=== PATIENT | female | born 1970 | race African-American/Black ===

== ENCOUNTER 2016-08-24 17:00 | Inpatient (IN) | payer MEDICARE, OTHER ==
--- NOTE | ~2016-08-24 | CO ---
Unit #: [id number] #: [id number] Patient: ANNIKA ADAMES [id number] [place] [address] [id number] MR#: [id number] NAME: ANNIKA ADAMES ROOM: P256 Age: 46 Sex: F Admission Date: 08/24/2016 : 1970 Attending Physician: Yuliana Casey M.D. Primary Care Physician: Lefty Magaña M.D. Consultation Date: 08/25/2016 CONSULTATION REPORT SUBJECTIVE Annika is a 46-year-old with history of seizures. She is noncompliant with medication. At the time of admission, she reported that her last seizure was 3 weeks ago. She was admitted with some scattered bruising about her face. She has no complaints in the areas where she is bruised. She does report occasional headaches. She denies visual disturbances and nausea and vomiting. The patient was seen for her admission H and P on 08/25/2016. Please see H and P dated 08/25/2016. Dictated by... Mariah Villa P.A.-C. for Soren Valdes/cachorro TD: 08/28/2016 18:25 JOB #: [id number] CONSULTATION REPORT Page 1 of 1 X Mariah Villa CONSULTATION REPORT
--- NOTE | ~2016-08-24 | PN ---
Unit #: [id number] #: [id number] Patient: ZION ADAMES [id number] [facility] [address] [place] [address] [id number] MR#: [id number] NAME: ZION ADAMES ROOM: P256 Age: 46 Sex: F Admission Date: 08/24/2016 : 1970 Attending Physician: Yuliana Casey M.D. Admitting Physician: Yuliana Casey M.D. Primary Care Physician: Soren Zhu PROGRESS NOTES DATE August 29, 2016 DISCUSSION Ms. Adames is a 46-year-old female, who was seen today and chart was reviewed and the case was discussed with the staff. The patient has been doing fairly well and has been showing improvement in her depression and anxiety, meanwhile, she has been taking the medications and tolerating them fairly well. MENTAL STATUS EXAMINATION Middle-aged female, who was casually dressed with fair personal hygiene and appears to be in no acute distress or discomfort. She was awake and alert with impaired attention and concentration. Her mood was anxious with a congruent affect. The patient denies any suicidal or homicidal ideations. Her insight and judgment remain slightly impaired. TREATMENT PLAN 1. We will continue her on her current medications and treatment protocol, and will monitor her response to the medications, and make further adjustments as needed. 2. We will continue to followup. Dictated by... Soren Wilkes/chris TD: 08/30/2016 13:24 JOB #: [id number] Unit #: [id number] #: [id number] Patient: ZION ADAMES PROGRESS NOTES Page 1 of 1 X Yuliana Casey MD PROGRESS NOTE
--- NOTE | ~2016-08-24 | PN ---
Unit #: [id number] #: [id number] Patient: ZION ADAMES [id number] [facility] [address] [place] [address] [id number] MR#: [id number] NAME: ZION ADAMES ROOM: P256 Age: 46 Sex: F Admission Date: 08/24/2016 : 1970 Attending Physician: Yuliana Casey M.D. Admitting Physician: Yuliana Casey M.D. Primary Care Physician: Soren Zhu PROGRESS NOTES DATE August 27, 2016 DISCUSSION Ms. Adames is a 46-year-old female, who was seen today and chart was reviewed and the case was discussed with the staff. The patient has been anxious, withdrawn, and rather seclusive to herself. Meanwhile, she has been cooperative with the treatment recommendations and she has been taking the medications and tolerating them fairly well with no reported side effects. MENTAL STATUS EXAMINATION Middle-aged female, who was casually dressed with fair personal hygiene and appears to be in no acute distress or discomfort. She was awake and alert with impaired attention and concentration. Her mood was anxious with a congruent affect. The patient denies any suicidal or homicidal ideations. Her insight and judgment remain slightly impaired. TREATMENT PLAN 1. We will continue her on her current medications and treatment protocol, and will monitor her response to the medications, and make further adjustments as needed. 2. We will continue to followup. Dictated by... Soren Wilkes/chris TD: 08/27/2016 12:18 JOB #: [id number] Unit #: [id number] #: [id number] Patient: ZION ADAMES PROGRESS NOTES Page 1 of 1 X Yuliana Casey MD X PROGRESS NOTE
--- NOTE | ~2016-08-24 | A ---
[facility] Nutrition Therapy DATE: 08/27/16 Patient: ZION ROSANGELA Physician: AFAIRF Address: [address] [facility] [address] Room/Bed: [address], Zip: [place] [address] Admit Date: 08/24/16 Date of : [birth year] Height: 5 7 Weight: 315 [phone] NUTRITIONAL ASSESSMENT: REASON: CONSULT "PT REQUEST" PATIENT ADMITTED FOR DEPRESSION AND SI PMH: OBESITY, SEIZURE D/O, HTN, HLD, GERD Anthropometrics: HT: 67", WT: 316#, BMI: 49.5 Labs: 08/25/16- ALL NUTRITION LABS WNL, HGB: 11.9 Meds: MVI, ZOLOFT, INVEGA, KEPPRA, ZOFRAN Assessment: PATIENT REQUESTED TO SEE THE DIETITIAN. SHE STATED WHEN SHE WAS AT THE HOSPTIAL THE MD TOLD HER SHE HAD HIGH PROTEIN LEVELS AND NEEDED TO CONSUME LESS PROTEIN. LABS FROM 08/25/16 SHOW PATIENT'S RENAL FUNCTION, ALBUMIN, AND TOTAL PROTEIN ARE ALL WITHIN A NORMAL RANGE, AND HER HEMOGLOBIN WAS LOW AT 11.9. THERE IS NO NUTRITIONAL NEED FOR PATIENT TO BE ON A LOW PROTEIN DIET, AND PATIENT'S CURRENT HBG LEVELS INDICATE SHE MAY HAVE SLIGHT ANEMIA. THERE ARE NO SKIN OR GI ISSUES NOTED ATT. PATIENT IS ON A REGULAR DIET Dx: NO NUTRITION DX Intervention: REGULAR DIET, MEDS PER MD, PSYCH Monitoring, Evaluation and Goals: 1. ADEQUATE PO INTAKES >50% OF MEALS 2. PREVENT, CORRECT MICRO/MACRO NUTRIENT DEFICIENCIES MONITOR: WEIGHTS, LABS, PO/FLUID INTAKES Recommendations: 1. CONTINUE REGULAR DIET TOLERATED. THERE IS NO NUTRITION INDICATION FOR PATIENT TO BE ON A LOW PROTEIN DIET 2. ENCOURAGE ADEQUATE PO AND FLUID INTAKES RD TO F/U PER PROTOCOL AND PRN R/T PATIENT NOT AT NUTRITIONAL RISK ATT Respectfully, [facility] Nutrition Therapy DATE: 08/27/16 Patient: ZION ROSANGELA Physician: AFAIRF Address: [address] [facility] [address] Room/Bed: [address], Zip: [place] [address] Admit Date: 08/24/16 Date of : [birth year] Height: 5 7 Weight: [phone], LD [facility] cc: client file
--- NOTE | ~2016-08-24 | PN ---
Unit #: [id number] #: [id number] Patient: ZION ADAMES [id number] [facility] [address] [place] [address] [id number] MR#: [id number] NAME: ZION ADAMES ROOM: P256 Age: 46 Sex: F Admission Date: 08/24/2016 : 1970 Attending Physician: Yuliana Casey M.D. Admitting Physician: Yuliana Casey M.D. Primary Care Physician: Soren Zhu PROGRESS NOTES DATE OF SERVICE: 08/26/2016 SUBJECTIVE Ms. Cuellar is a 46-year-old female, who was seen today and chart was reviewed and case was discussed with the staff. She has been anxious, withdrawn, depressed, and seclusive to herself. Meanwhile, she has been cooperative with treatment recommendations and has been taking medications and tolerating them fairly well with no reported side effects. MENTAL STATUS EXAMINATION Middle-aged female who was casually dressed with fair personal hygiene, appears to be in no acute distress or discomfort. She was awake and alert with impaired attention and concentration. Her mood was anxious with a congruent affect. Her speech was slow and restricted in content. She denies any suicidal or homicidal ideations. Her insight and judgment remain slightly impaired. TREATMENT PLAN 1. We will continue on her current medications and treatment protocol. We will monitor her response to the medications and make further adjustments as needed. 2. We will continue to follow up. Dictated by... Soren Wilkes/cachorro TD: 08/27/2016 00:42 JOB #: [id number] Unit #: [id number] #: [id number] Patient: ZION ADAMES PROGRESS NOTES Page 1 of 1 X Yuliana Casey MD PROGRESS NOTE
--- NOTE | ~2016-08-24 | HP ---
Unit #: [id number] #: [id number] Patient: ANNIKA ADAMES [id number] [place] [address] [id number] MR#: [id number] NAME: ANNIKA ADAMES ROOM: P258 Age: 46 Sex: F Admission Date: 08/24/2016 : 1970 Attending Physician: Yuliana Casey M.D. Admitting Physician: Yuliana Casey M.D. Primary Care Physician: Lefty Magaña M.D. HISTORY AND PHYSICAL HISTORY OF PRESENT ILLNESS Annika is a 46 year old admitted to [address] [place] [address] with depression and verbalizing wanting to hurt herself. PAST MEDICAL HISTORY 1. Obesity. 2. Seizure disorder. Patient reports last seizure 3 weeks ago. She further reports that she is noncompliant with her medications. 3. High blood pressure. 4. Hyperlipidemia. 5. GERD. PAST SURGICAL HISTORY 1. Cholecystectomy. 2. D and C. 3. Tubal ligation. ALLERGIES No known drug allergies. SOCIAL HISTORY She denies cigarettes, alcohol and illicit drug use. FAMILY HISTORY Medically noncontributory. REVIEW OF SYSTEMS CONSTITUTIONAL: No fever or chills. HEENT: Denies any sore throat, ear pain or runny nose. CARDIOVASCULAR: Denies chest pain, irregular heart rhythm or palpitations. CHEST: Denies shortness of breath or cough. No hemoptysis. GASTROINTESTINAL: Denies nausea, vomiting, diarrhea or chronic constipation. ENDOCRINE: Denies history of increased thirst or urination. No recent significant weight loss or gain. GENITOURINARY: Denies dysuria, frequency, or hematuria. SKIN: Denies any rashes. HEMATOLOGIC: Denies history of increased bleeding or bruising. MUSCULOSKELETAL: Denies any hot, swollen joints. No generalized muscle pain. NEUROLOGIC: Denies problems with vision or speech. No frequent, severe headaches. No numbness, tingling or weakness in any extremities. Denies loss of bladder or bowel control. Unit #: [id number] #: [id number] Patient: ANNIKA ADAMES CURRENT MEDICATIONS 1. Claritin 10 mg daily. 2. Multivitamin 1 daily. 3. Tenormin 25 mg daily. 4. Aspirin 81 mg daily. 5. Zoloft 100 mg daily. 6. Lipitor 20 mg daily. 7. Invega 9 mg q.h.s. 8. Keppra 1000 mg b.i.d. 9. Zofran 4 mg t.i.d. 10. Naproxen 500 mg q. 12 hours p.r.n. 11. Lamictal 400 mg b.i.d. 12. Milk of Magnesia p.r.n. 13. Maalox p.r.n. 14. Tylenol p.r.n. PHYSICAL EXAMINATION GENERAL: Alert, obese, in no apparent distress. VITAL SIGNS: Blood pressure 126/86, heart rate 80, respirations 16, temperature 98.6. WEIGHT: 316. HEIGHT: 5 feet 7 inches. SKIN: Warm and dry without rash or lesion. HEENT: Normocephalic. TMs not viewed. Oral and nasal passages clear. Conjunctivae clear. PERRLA. EOMs intact. NECK: Supple without lymphadenopathy or thyromegaly. HEART: Regular rate and rhythm without murmur. LUNGS: Clear. ABDOMEN: Soft, nontender. : Not done. EXTREMITIES: No evidence of cyanosis, clubbing or edema. Moves all without focal deficit. NEUROLOGICAL: Grossly within normal limits. Cranial Nerves: II: Visual painting are intact. III, IV AND : Extraocular movements are intact. Pupils are equal, round and reactive to light. V: Facial sensation is grossly normal. VII: Facial movements and expression are normal. VIII: Auditory acuity grossly intact. IX, X: Uvula is midline. Phonation is normal. XI: Patient shrugs shoulders and turns head normally. XII: Tongue protrudes in the midline. Sensory and Motor Function: Sensory and motor sensation is grossly normal. Motor: moves all extremities well. Coordination: Gait is normal. Deep Tendon Reflexes: Intact. IMPRESSION Psychiatric admission. RECOMMENDATIONS PSYCHIATRIC: Per psychiatrist. MEDICAL: See no contraindication to participate in facility's activities. MEDICAL PROGNOSIS Good. MEDICAL CONDITION Stable. Unit #: [id number] #: [id number] Patient: ANNIKA ADAMES Dictated by... Mariah Villa P.A.-C. for Soren Valdes/chio TD: 08/25/2016 17:41 JOB #: [id number] HISTORY AND PHYSICAL Page 1 of 1 X Mariah Villa HISTORY AND PHYSICAL
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
--- NOTE | ~2016-08-24 | PN ---
Unit #: [id number] #: [id number] Patient: ZION ADAMES [id number] [facility] [address] [place] [address] [id number] MR#: [id number] NAME: ZION ADAMES ROOM: P256 Age: 46 Sex: F Admission Date: 08/24/2016 : 1970 Attending Physician: Yuliana Casey M.D. Admitting Physician: Yuliana Casey M.D. Primary Care Physician: Soren Zhu PROGRESS NOTES DATE 08/28/2016 DISCUSSION Ms. Cuellar is a 46-year-old female who was seen today and chart was reviewed and case was discussed with the staff. She has been anxious, withdrawn, depressed and rather seclusive to herself. Meanwhile, she has been cooperative with treatment recommendations and has been taking medications and tolerating them fairly well. MENTAL STATUS EXAMINATION Middle-aged female who was casually dressed with fair personal hygiene and appears to be in no acute distress or discomfort. She was awake and alert . Her mood was anxious with congruent affect. She denies any suicidal or homicidal ideation. Her insight and judgement remains slightly impaired. TREATMENT PLAN 1. Will continue current medications and monitor her response and make further adjustments as needed. 2. Will continue to follow up. Dictated by... Yuliana Casey M.D. IAA/chio TD: 08/28/2016 18:04 JOB #: [id number] Unit #: [id number] #: [id number] Patient: ZION ADAMES PROGRESS NOTES Page 1 of 1 X Yuliana Casey MD X PROGRESS NOTE
[2016-08-25 09:43] LABS: URINE APPEARANCE CLEAR; URINE BILIRUBIN NEG (NEG); URINE BLOOD NEG (NEG); URINE COLOR YELLOW; URINE GLUCOSE NEG (NEG); URINE KETONE NEG (NEG); URINE LEUKOCYTE ESTERASE NEG (NEG); URINE NITRATE NEG (NEG); URINE PROTEIN NEG (NEG); URINE SPECIFIC GRAVITY 1.018 (1.003-1.035); URINE UROBILINOGEN 0.2 MG/DL (NEG)
[2016-08-25 09:46] LABS: BASOPHIL% 0.8 % (0-2.5); DIFF IND NO; EOSINOPHIL# 0.1 X10e3 (0-0.7); EOSINOPHIL% 1.6 % (0.0-7.0); HEMATOCRIT 36.4 % (35.0-45.0); HEMOGLOBIN 11.9 gm/dL (12.0-16.0); LYMPHOCYTE# 1.6 X10e3 (1.0-3.5); LYMPHOCYTE% 27.3 % (17.0-45.0); MEAN CORPUSCULAR HEMOGLOBIN 28.5 PG (28-34); MEAN CORPUSCULAR HGB CONC 32.8 g/dL (30-36); MONOCYTE# 0.5 X10e3 (0-1.0); NEUTROPHIL# 3.6 X10e3 (1.5-7.1); NEUTROPHIL% 62.3 % (40-75); PLATELET COUNT 195 X10e3 (140-420); RED BLOOD COUNT 4.18 X10e (3.90-5.30); RED CELL DISTRIBUTION WIDTH 13.3 % (11.0-15.5); WHITE BLOOD COUNT 5.8 X10e3 (4.0-10.5)
[2016-08-25 10:09] LABS: AMPHETAMINE NEG (NEG); BARBITURATES NEG (NEG); BENZODIAZEPINES NEG (NEG); COCAINE NEG (NEG); MARIJUANA NEG (NEG); OPIATES NEG (NEG); TRICYCLIC ANTIDEPRESSANTS NEG (NEG); U METHADONE NEG (NEG)
[2016-08-25 10:09] LABS: ALBUMIN SERUM 3.5 g/dL (3.5-5.0); BILIRUBIN,TOTAL 0.2 mg/dL (0.2-2.0); CALCIUM SERUM 8.7 mg/dL (8.4-10.2); GLOM FILT RATE Estimated 77.7 mL/min (>60); PROTEIN TOTAL SERUM 6.2 g/dL (6.0-8.3)
== END 2016-08-30 13:15 | disposition home or self-care (01) | DRG 885 ==
LOC: P2L 19:36 → POF 08-27 00:18 → P2L 08-27 00:24
PROVIDERS: Psychiatry & Neurology Psychiatry
DX: F31.32 Bipolar disorder, current episode depressed, moderate (principal); G40.909 Epilepsy, unspecified, not intractable, without status epilepticus; I10 Essential (primary) hypertension; E78.5 Hyperlipidemia, unspecified; Z91.14 Patient's other noncompliance with medication regimen
CPT/HCPCS: 80053; 80307; 81003; 84703; 85025